=== PATIENT | female | born 1950 | race Caucasian/White ===

== ENCOUNTER 2024-04-05 06:56 | Day surgery (SDC) | payer MEDICARE ==
[2024-04-05] MEDS: Sodium Chloride 0.9% 10 ML Syringe FLUSH PRN (07:16)
== END 2024-04-05 08:38 | disposition home or self-care (01) ==
LOC: JP.SDS 06:56
PROVIDERS: ATTEND Ophthalmology
DX: H25.12 Age-related nuclear cataract, left eye (principal)
CPT/HCPCS: J3490; V2632